=== PATIENT | male | born 1990 | race African-American/Black ===

== ENCOUNTER 2020-01-07 13:48 | Emergency (ER) | payer OTHER ==
[~2020-01-07] VITALS: Ht 182.9 cm; Wt 97.9 kg
--- NOTE | 2020-01-07 14:05 | PHYS DOC ---
Adult General Chief Complaint Chief Complaint: FEVER HPI HPI Patient is a 29 year old male who presents with complaints of fever that he noticed 3:00 this morning. Patient states he took an oral temperature and it was 99.9 in which he took 2 regular strength 325 mg Tylenols. Patient states that at approximately 9 AM he took a recommended dose of NyQuil, and then approximately 2 hours ago took another 650 mg dose of Tylenol because he noticed his fever was then 103.8. Patient states that his high fever worried him and he decided to come to the emergency department today. Patient also complains of a slight sore throat, a frontal headache, generalized muscle aches with fatigue. 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 Patient denies visual changes, nasal congestion, cough, does state he feels short of breath if he takes a deep breath, patient denies chest pains, swelling of extremities, denies heart palpitations. Patient denies abdominal pain, nausea, vomiting, diarrhea, or constipation. Patient denies any problems urinating. Patient denies back pain or pain in his joints, patient denies any rashes on his skin. Patient denies any focal weaknesses or sensory changes. Patient denies increased urination, however does state that he has been drinking a lot of water since his fever started. Patient denies any swelling of his glands, patient denies depressions, anxieties, homicidal or suicidal ideation. Patient denies any recent exposure to the COVID-19 virus, however he is worried that he might have the COVID-19 virus. Patient states no one else living in his home has the same symptoms. Patient reports his frontal headache pain at a 2/10 on the 10 pain scale. (CLIFTON HAIR APRN) Review of Systems Review of Systems Constitutional: Denies chills, however complains of fevers at home started at 3 AM, the lowest being in 99.9 and the highest being 103.8 oral temp Eyes: Denies change in visual acuity, redness, or eye pain HENT: Denies nasal congestion, complains of a sore throat. Respiratory: Denies cough, states that when he takes a deep breath he feels slightly short of breath. Cardiovascular: Denies chest pains or chest discomfort denies heart palpitations. GI: Denies abdominal pain, nausea, vomiting, constipation or diarrhea. : Denies dysuria or hematuria, denies penile discharge. Musculoskeletal: Denies back pain or joint pain Integument: Denies rash or skin lesions Neurologic: Complains of a frontal headache that he rates a 2/10 on a 1-10 pain scale, denies sensory changes denies focal weaknesses. Endocrine: Denies polyuria, complains of polydipsia since his fever started this morning. Psychiatric: Denies homicidal or suicidal ideations, denies recent depressions or anxieties. All other systems were reviewed and found to be within normal limits, except as documented in this note. (CLIFTON AHIR APRN) Current Medications Current Medications Patient states he takes an unknown dose of amitriptyline nightly for sleep which is prescribed by his primary physician Dr. Griggs. (CLIFTON HAIR APRN) Allergies Allergies Patient denies allergies to medications denies seasonal allergies, denies food allergies (CLIFTON HAIR APRN) Physical Exam Physical Exam Constitutional: Well developed, well nourished, no acute distress, non-toxic appearance. HENT: Normocephalic, atraumatic, bilateral external ears normal, nose normal no oral exudates, lips teeth and gums are in good condition, mucous membranes are moist and pink in the oral cavity, posterior oropharynx and bilateral tonsils are moist and slightly reddened, uvula midline it is not swollen, there is no angioedema, there is no uvular edema, there is no drainage, no purulence noted, no lesions noted, no cobblestoning, bilateral TMs are intact pearly shiny without bulging, light reflex is seen at the 5 o'clock position. No postnasal drip noted. Eyes: PERRLA, EOMI, conjunctiva normal, no discharge. Pupils 4 mm. Neck: Normal range of motion, no tenderness, supple, no stridor. There is a right sided submandibular lymphadenopathy, no other lymphadenopathy noted of the head and neck. Cardiovascular:Heart rate regular rhythm, no murmur heart sounds S1-S2 to auscultation Lungs & Thorax: Bilateral breath sounds clear to auscultation all lung mckenna. Abdomen: Bowel sounds normal, soft, no tenderness, no masses, no pulsatile masses. Skin: Warm, dry, no erythema, no rash. Back: No tenderness, no CVA tenderness. Extremities: No tenderness, no cyanosis, no clubbing, ROM intact, no edema. Neurologic: Alert and oriented X 3, normal motor function, normal sensory function, no focal deficits noted. Psychologic: Affect normal, judgement normal, mood normal. (CLIFTON HAIR APRN) EKG EKG [] (CLIFTON HAIR APRN) Radiology/Procedures Radiology/Procedures REASON: SHORT OF BREATH, FEVER PROCEDURE: CHEST AP ONLY EXAM: CHEST AP ONLY INDICATION: Reason: SHORT OF BREATH, FEVER / Spl. Instructions: / History: . TECHNIQUE: Single view COMPARISON: None FINDINGS: The heart size is normal. The great vessels appear unremarkable. There is no hilar or mediastinal mass. The lungs are clear. There is no pleural effusion or pneumothorax. There are no significant osseous abnormalities. IMPRESSION: No active cardiopulmonary disease. Electronically signed by: Lana Howe MD (01/07/2020 2:50 PM) [id number] DICTATED AND SIGNED BY: LANA HOWE MD DATE: 01/07/20 1450 CC: CLIFTON HAIR APRN; MELLY SUN MD; CLIFTON BRYANT DO ~MTH0 0 (CLIFTON HAIR APRN) Heart Score Risk Factors: Risk Factors: DM, Current or recent (<one month) smoker, HTN, HLP, family history of CAD, obesity. Risk Scores: Risk Factors: DM, Current or recent (<one month) smoker, HTN, HLP, family history of CAD, obesity. (CLIFTON HAIR APRN) Course & Med Decision Making Course & Med Decision Making Pertinent Labs and Imaging studies reviewed. (See chart for details) 29-year-old male presents to the emergency department with complaints of a fever started 3 AM last night. Patient has taken Tylenol and yrny-dbb-mjhyzwn liquid NyQuil to treat symptoms. Patient noticed that approximately an hour and a half prior to his arrival to the emergency department his fever was 103.8 oral temp, patient states this is what prompted him to come to the emergency department today. The patient's vital signs were stable, he is afebrile, he is not toxic. The patient does however present with symptoms of a febrile illness, and ER work-up will include a chest x-ray for his vague complaints of shortness of breath, a rapid strep will be performed related to his oropharynx slightly erythematous, a rapid flu and a COVID-19 test will be performed related to the patient's fever. He will be treated with 600 mg of p.o. ibuprofen, and 10 mg of p.o. Decadron. Pulmonary embolus is unlikely and ruled out per PERC rule, score equals 0. Will reexamine patient after ordered labs are complete, labs pending at this time. 1 view chest x-ray read negative for acute pulmonary process per house radiologist, rapid strep and rapid flu A/B still pending at this time. Rapid flu and rapid strep were both negative, Covid 19 test is pending. Reexamination of patient patient remains nontoxic, states he feels much better, recheck of vitals oral temp 98.2, heart rate 81, respirations 16 and unlabored, blood pressure 121/80 taken by noninvasive blood pressure of the right upper extremity. Patient's fever symptoms most likely a fever of unknown etiology, or febrile illness, possibly COVID-19 positive in which patient is currently under investigation of. Discussed with patient that test is pending and he should be contacted within 2 days reviewed coronavirus isolation recommendations, will add coronavirus recommendations to his discharge instructions, patient states no one else in his home to include his and 2 children are ill, discussed isolation at home, will give patient a work excuse with return date pending COVID-19 results. Patient will be given a prescription for Z-Kumar related to his pharyngitis symptoms. Patient gave verbal understanding of discharge home instructions, prescription instructions, strict return to ER concerns, patient had no further questions or concerns, patient discharged home without incident. (CLIFTON HAIR APRN) Dragon Disclaimer Dragon Disclaimer This electronic medical record was generated, in whole or in part, using a voice recognition dictation system. (CLIFTON HAIR APRN) Departure Departure: Impression: Primary Impression: Pharyngitis with viral syndrome Additional Impressions: Viral illness Person under investigation for COVID-19 Disposition: 01 DC HOME SELF CARE/HOMELESS Condition: IMPROVED Referrals: MELLY SUN MD (PCP) Patient Instructions: Viral and Bacterial Pharyngitis Additional Instructions: Take medications as prescribed, follow-up with your doctor soon, follow-up COVID-19 recommendations and discharge instructions, return to emergency department for worsening concerns, you will be given a work excuse with a return date pending your COVID-19 results, if you do not receive results within 2 days please call to obtain your results. You have been tested for or diagnosed with COVID-19. It is an infection caused by a new type of coronavirus. COVID-19 will cause cold-like or mild flu symptoms in most. It can cause more severe symptoms like problems breathing in some. There is no treatment for COVID-19. The body will clear the infection over time. Self-care will help to ease discomfort. Steps to Take: Self-Care Rest as needed. Healthy habits may help you feel better. Steps include: Choose healthy foods including fruits and vegetables. Drink water throughout the day. Get plenty of sleep each night. If you smoke, try to quit. It may ease breathing. Avoid alcohol. Keep Others Healthy The virus can spread to others. Droplets are released every time you sneeze or c ough. The droplets can get into the mouth, nose, or eyes of people near you and lead to infection. To lower the chances of spreading COVID-19 to others: Stay at home until your doctor has said it is safe to leave. If you tested positive this will mean staying isolated until both of the following are true: At least 7 days have passed since the start of illness. You are free of fever for at least 72 hours without the use of medicine. During this time: - Avoid public areas, events, or transportation. Do not return to work or school until your doctor has said it is safe to do so. - Call ahead if you need to go to a medical center. Let them know you may have COVID-19. It will help them guide you where to go. They may also ask you to wear a facemask when you come to the office. - If you call for emergency medical services, let them know you may have COVID- 19. While at home: - Try to avoid close contact with others. Stay about 6 feet away. - If possible, spend most of your time in a separate room from others. - Use a face mask if you will be in close contact with others such as sharing a room or vehicle. - Have someone wipe down common surfaces in the home. Use household air quality manager every day on areas like doorknobs, counters, or sinks. - Cough or sneeze into a tissue. Throw the tissue away right after use. If a tissue is not available, cough or sneeze into your elbow. - Wash your hands often. Wash them after sneezing or coughing. Use soap and water and wash for at least 20 seconds. Alcohol based hand fish cleaner machine tender can be used if soap and water is not available. - Do not prepare food for others. Avoid sharing personal items like forks, spoons, or toothbrushes. - Avoid close contact with pets while you are sick. There is no evidence of the virus passing to pets. This is a safety step until more is known about this virus. Isolation can be frustrating. Social interaction can help. Keep in touch with friends and family through phone and tech options. You can still interact with others in your home, just keep a safe distance of about 6 feet. Follow-up: Your doctors office will check in with you to see if there are any changes in your health. You may be asked to keep track of symptoms to share with them. They will also let you know when you are clear to be in public again. Problems to Look Out For: Contact your doctor if your recovery is not going as you expect. Get emergency care if you have problems such as: - Trouble breathing - Nonstop chest pain or pressure - Changes in awareness, confusion, or problems waking - Lips or face have bluish color - Worsening of symptoms If you think you have an emergency, call for emergency medical services right away. As taken from [facility] EMERGENCY DEPARTMENT GENERAL DISCHARGE INSTRUCTIONS Thank you for coming to [facility] (ED) today and trusting us with you care. We trust that you had a positivie experience in our Emergency Department. If you wish to speak to the department management, you may call the director at [phone]. YOUR FOLLOW UP INSTRUCTIONS ARE FOLLOWS: 1. Do you have a private Doctor? If you do not have a private doctor, please ask for a resource list of physicians or clinics that may be able to assist you with follow up care. 2. The Emergency Physician has interpreted your x-rays. The X-Ray specialist will also review them. If there is a change in the findings, you will be notified in 48 hours when at all possible. 3. A lab test or culture has been done, your results will be reviewed and you will be notified if you need a change in treatment. ADDITIONAL INSTRUCTIONS AND INFORMATION: 1. Your care today has been supervised by a physician who is specially trained in emergency care. Many problems require more than one evaluation for a complete diagnosis and treatment. We recommend that you schedule your follow up appointment as recommended to ensure complete treatment of you illness or injury. If you are unable to obtain follow up care and continue to have a problem, or if your condition worsens, we recommend that you return to the ED. 2. We are not able to safely determine your condition over the phone nor are we able to give sound medical advice over the phone. For these safety reasons, if you call for medical advice we will ask you to come to the ED for further evaluation. 3. If you have any questions regarding these discharge instructions please call the ED at [phone]. SAFETY INFORMATION: In the interest of safety, wellness, and injury prevention; we encourage you to wear your sealbelt, if you smoke; quite smoking, and we encourage family to use a protective helmet for bicycling and other sporting events that present an increased risk for head injury. IF YOUR SYMPTOMS WORSEN OR NEW SYMPTOMS DEVELOP, OR YOU HAVE CONCERNS ABOUT YOUR CONDITION; OR IF YOUR CONDITION WORSENS WHILE YOU ARE WAITING FOR YOUR FOLLOW UP APPOINTMENT; EITHER CONTACT YOUR PRIMARY CARE DOCTOR, THE PHYSICIAN WHOSE NAME AND NUMBER YOU WERE GIVEN, OR RETURN TO THE ED IMMEDIATELY. Scripts Azithromycin (AZITHROMYCIN TABLET) 250 Mg Tablet 1 PKG PO UD for PHARYNGITIS for 5 Days, #6 TAB 0 Refills 2 the first day followed by 1 for days 2-5 Prov: CLIFTON HAIR APRN 01/07/20 PERC Rule for PE PERC Rule for PE Response (Comments) Value Age > 50: No 0 HR > 100: No 0 Sa02 on room air <95%: No 0 Unilateral leg swelling: No 0 Hemoptysis: No 0 Recent surgery or trauma: No 0 Prior PE or DVT: No 0 Hormone use: No 0 Total 0 COVID-19 Assessment COVID-19 Patient Risks: Age 65 or older: No Sign of co-morbidity: No Exp to person + for COVID: No Exp to PUI: No Travel from affected area: No Lower respiratory symptoms: No Fever: Yes Other: Yes (Malaise) (CLIFTON BRYANT DO) PPE Use: Full PPE with N95 mask or PAPR: Yes (CLIFTON BRYANT DO) Attending Signature Attending Signature I have reviewed the PA/COTTAGE PARENT's note and plan of care. I was available for consultation as needed during the patient's visit in the emergency department. I agree with the clinical impression, plan, and disposition. COVID-19 CRITERIA: The patient was evaluated during the global COVID-19 pandemic, and that diagnosis was suspected/considered upon their initial prese ntation. Their evaluation, treatment and testing was consistent with current guidelines for patients who present with complaints or symptoms that may be related to COVID-19. (CLIFTON BRYANT DO) Problem Qualifiers CLIFTON HAIR APRN Jan 07, 2020 14:04 CLIFTON BRYANT DO Jan 07, 2020 20:10
--- NOTE | 2020-01-07 14:53 | RAD ---
EXAM: CHEST AP ONLY INDICATION: Reason: SHORT OF BREATH, FEVER / Spl. Instructions: / History: . TECHNIQUE: Single view COMPARISON: None FINDINGS: The heart size is normal. The great vessels appear unremarkable. There is no hilar or mediastinal mass. The lungs are clear. There is no pleural effusion or pneumothorax. There are no significant osseous abnormalities. IMPRESSION: No active cardiopulmonary disease. Electronically signed by: Beto Howe MD (01/07/2020 2:50 PM) [id number]
[2020-01-07] MEDS ORDERED: DEXAMETHASONE SOD PHOS 10 MG/ML VIAL. PO ONE (15:00)
[2020-01-07] MEDS ORDERED: IBUPROFEN 600 MG TABLET. PO ONE (15:00)
[2020-01-07 16:09] LABS: INFLUENZA A PATIENT NEGATIVE (NEGATIVE); INFLUENZA B PATIENT NEGATIVE (NEGATIVE)
[2020-01-07] MEDS ORDERED: AZIT250T6 PO (16:44)
[2020-01-07 16:55] VITALS: BP 119/68
== END 2020-01-07 17:00 | disposition home or self-care (01) ==
LOC: ER 13:48
DX: J02.8 Acute pharyngitis due to other specified organisms (principal); B34.9 Viral infection, unspecified; Z20.828 Contact with and (suspected) exposure to other viral communicable diseases
CPT/HCPCS: 71045; 87070; 87804; 87880; 99284; C9803; J1100; U0003